=== PATIENT | male | born 1990 | race Caucasian/White ===

== ENCOUNTER 2024-02-10 16:56 | Emergency (ER) | payer OTHER ==
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
--- NOTE | 2024-02-10 17:52 | XR ---
EXAMINATION TYPE: XR chest 2V DATE OF EXAM: 02/10/2024 5:29 PM CLINICAL INDICATION:Male, 33 years old with history of rib pain, fall; [facility] COMPARISON: None TECHNIQUE: XR chest 2V Frontal and lateral views of the chest. FINDINGS: Lungs/Pleura: There is no evidence of pleural effusion, focal consolidation, or pneumothorax. Pulmonary vascularity: Unremarkable. Heart/mediastinum: Cardiomediastinal silhouette is unremarkable. Musculoskeletal: No acute osseous pathology. IMPRESSION: No acute cardiopulmonary disease/process.
[2024-02-10 19:14] VITALS: BP 140/79; PULSE 58; RESP 16; TEMP 97.5
== END 2024-02-10 18:53 | disposition home or self-care (01) ==
LOC: EC 16:56 → EDSEX 16:56 → EC 18:53
DX: S29.9XXA Unspecified injury of thorax, initial encounter (principal); F17.290 Nicotine dependence, other tobacco product, uncomplicated; V18.9XXA Unspecified pedal cyclist injured in noncollision transport accident in traffic accident, initial encounter; Y92.410 Unspecified street and highway as the place of occurrence of the external cause
CPT/HCPCS: 71046; 99283